=== PATIENT | female | born 1940 | race Two or more races ===

== ENCOUNTER 2021-10-27 11:51 | Inpatient (IN) | payer MEDICARE, BC ==
[~2021-10-27] VITALS: Ht 165.1 cm; Wt 203.2 kg
[2021-10-27 13:07] LABS: Basophils # (auto) 0.1 10 ^3/uL (0-0.2); Basophils % (auto) 0.6 % (0.0-2.0); Eosinophils # (auto) 0.2 10 ^3/uL (0-0.8); Eosinophils % (auto) 1.7 % (0.0-7.0); Hematocrit 44.1 % (36.0-46.0); Hemoglobin 14.7 g/dL (12.2-16.2); Lymphocytes # (auto) 1.7 10 ^3/uL (0.4-5.4); Lymphocytes % (auto) 14.8 % (10.0-50.0); Mean Corpuscular Hemoglobin 28.6 pg (28.0-32.0); Mean Corpuscular Hgb Conc. 33.4 g/dL (32.0-36.0); Mean Corpuscular Volume 85.7 fL (80.0-100.0); Monocytes # (auto) 1.2 10 ^3/uL (0-1.3); Neutrophils # (auto) 8.4 10 ^3/uL (1.6-8.6); Neutrophils % (auto) 72.9 % (37.0-80.0); Nucleated Red Blood Cells % 0.1 %; Red Blood Cells 5.15 10^6/uL (4.0-5.20); Red Cell Distribution Width 14.4 % (11.8-14.3); White Blood Cell 11.5 10^3/uL (4.4-10.8)
[2021-10-27 13:13] LABS: INR 0.99 (0.9-1.15); Partial Thromboplastin Time 29.1 sec (23.6-33.0)
[2021-10-27 13:15] LABS: Albumin 3.7 g/dL (3.4-5.0); BUN/Creatinine Ratio 22.6; Calcium 9.1 mg/dL (8.5-10.1); Magnesium 2.3 mg/dL (1.6-2.6)
[2021-10-27 13:18] LABS: Bilirubin, Total 0.4 mg/dL (0.2-1.0); Total Protein 7.4 g/dL (6.4-8.2)
[2021-10-27] MEDS ORDERED: MORPHINE SULFATE INJ 2 MG/ml SYRG IV PRN (16:15)
[2021-10-27] MEDS ORDERED: NITROGLYCERIN 0.4 MG SL TAB SL PRN (16:15)
[2021-10-27] MEDS ORDERED: ALBUTEROL SULF 2.5 MG/0.5ML(0.5%) NEB SOLN NEB PRN (16:30)
[2021-10-27] MEDS ORDERED: AZITHROMYCIN 500MG/ 250ML 250 ML IV ONE (16:30)
[2021-10-27 19:41] LABS: Urine Bacteria NONE SEEN /hpf (None Seen); Urine Blood Negative /uL (Negative); Urine Specific Gravity 1.006 (1.001-1.035); Urine WBC 20 /hpf (0 - 5)
[2021-10-27 20:37] VITALS: BP 155/89
[2021-10-27] MEDS ORDERED: ASPI-543 PO (21:18)
[2021-10-27] MEDS ORDERED: SIMV-8 PO (21:18)
[2021-10-27 21:42] VITALS: BP 157/69
[2021-10-27 22:00] VITALS: BP 135/56
[2021-10-27] MEDS: SODIUM CHLORIDE 0.9% 1,000 ML IV SCH (23:35)
[2021-10-28 05:00] VITALS: BP 116/60
[2021-10-28 06:01] LABS: Basophils # (auto) 0.1 10 ^3/uL (0-0.2); Basophils % (auto) 1.3 % (0.0-2.0); Eosinophils # (auto) 0.1 10 ^3/uL (0-0.8); Eosinophils % (auto) 0.9 % (0.0-7.0); Hematocrit 40.7 % (36.0-46.0); Hemoglobin 14.2 g/dL (12.2-16.2); Lymphocytes # (auto) 0.9 10 ^3/uL (0.4-5.4); Lymphocytes % (auto) 8.9 % (10.0-50.0); Mean Corpuscular Hemoglobin 29.3 pg (28.0-32.0); Mean Corpuscular Volume 83.8 fL (80.0-100.0); Monocytes # (auto) 0.9 10 ^3/uL (0-1.3); Neutrophils # (auto) 8.1 10 ^3/uL (1.6-8.6); Neutrophils % (auto) 79.9 % (37.0-80.0); Nucleated Red Blood Cells % 0.1 %; Red Blood Cells 4.86 10^6/uL (4.0-5.20); Red Cell Distribution Width 14.3 % (11.8-14.3); White Blood Cell 10.1 10^3/uL (4.4-10.8)
[2021-10-28 06:17] LABS: Albumin 3.4 g/dL (3.4-5.0); Calcium 8.7 mg/dL (8.5-10.1); Potassium 4.2 mmol/L (3.5-5.1)
[2021-10-28 06:21] LABS: BUN/Creatinine Ratio 18.3; Bilirubin, Total 0.6 mg/dL (0.2-1.0); Total Protein 6.8 g/dL (6.4-8.2)
[2021-10-28 08:00] VITALS: BP 140/73
[2021-10-28] MEDS: SODIUM CHLORIDE 0.9% 1,000 ML IV SCH (08:20)
[2021-10-28] MEDS: AZITHROMYCIN 500MG/ 250ML 250 ML IV SCH (10:29)
[2021-10-28] MEDS ORDERED: FUROSEMIDE 20 MG/2 ML VIAL IV ONE ×2 (11:15→18:00)
[2021-10-28 12:00] VITALS: BP 132/69
[2021-10-28] MEDS ORDERED: ANGIOMAX 250 MG VIAL IV ONE (16:31)
[2021-10-28] MEDS ORDERED: HEPARIN SODIUM (PORCINE) 5000 UNITS/ML 1ML VIAL ONE (16:31)
[2021-10-28] MEDS ORDERED: VERAPAMIL 2.5MG/ML INJ 2ML VIAL IV ONE (16:32)
[2021-10-28] MEDS ORDERED: fentaNYL CITRATE 100 MCG/2 ML VL ONE (16:32)
[2021-10-28] MEDS ORDERED: MIDAZOLAM HCL 2MG/2ML 2ml VIAL (1mg/ml) ONE (16:32)
[2021-10-28] MEDS ORDERED: SODIUM CHL 0.9% 0 ML ONE (16:32)
[2021-10-28] MEDS ORDERED: LIDOCAINE 2%HCL (LOCAL ANESTH.) INJ 10ml MDV ONE (16:40)
[2021-10-28 17:55] VITALS: BP 124/55
[2021-10-28 23:40] VITALS: BP 130/63
[2021-10-29 05:26] VITALS: BP 125/62
[2021-10-29 08:50] VITALS: BP 102/56
[2021-10-29] MEDS ORDERED: FUROSEMIDE 20 MG/2 ML VIAL IV SCH (10:00)
[2021-10-29] MEDS: AZITHROMYCIN 500MG/ 250ML 250 ML IV SCH (11:15)
[2021-10-29 13:00] VITALS: BP 153/62
[2021-10-29 16:09] VITALS: BP 153/62
== END 2021-10-29 17:31 | disposition home or self-care (01) | DRG 286 ==
LOC: ER 11:52 → TELE 16:03 → TELE-EAST 20:19
PROVIDERS: ADMIT Registered Nurse; ATTEND Internal Medicine
PROC: 4A023N7 Measurement of Cardiac Sampling and Pressure, Left Heart, Percutaneous Approach (ICD-10-PCS; principal; 2021-10-29)
PROC: B211YZZ Fluoroscopy of Multiple Coronary Arteries using Other Contrast (ICD-10-PCS; 2021-10-29)
PROC: B215YZZ Fluoroscopy of Left Heart using Other Contrast (ICD-10-PCS; 2021-10-29)
DX: I25.110 Atherosclerotic heart disease of native coronary artery with unstable angina pectoris (principal); J18.9 Pneumonia, unspecified organism; I50.31 Acute diastolic (congestive) heart failure; J96.00 Acute respiratory failure, unspecified whether with hypoxia or hypercapnia; Z68.45 Body mass index [BMI] 70 or greater, adult; I11.0 Hypertensive heart disease with heart failure; D72.829 Elevated white blood cell count, unspecified; C50.919 Malignant neoplasm of unspecified site of unspecified female breast; E66.9 Obesity, unspecified; J43.9 Emphysema, unspecified; E11.9 Type 2 diabetes mellitus without complications; Z53.29 Procedure and treatment not carried out because of patient's decision for other reasons; Z20.822 Contact with and (suspected) exposure to COVID-19; F17.210 Nicotine dependence, cigarettes, uncomplicated; K21.9 Gastro-esophageal reflux disease without esophagitis; E78.5 Hyperlipidemia, unspecified; Z85.3 Personal history of malignant neoplasm of breast; Z90.13 Acquired absence of bilateral breasts and nipples; Z90.49 Acquired absence of other specified parts of digestive tract; Z90.710 Acquired absence of both cervix and uterus; Z79.899 Other long term (current) drug therapy; Z88.0 Allergy status to penicillin; Z71.3 Dietary counseling and surveillance
CPT/HCPCS: 36415; 36600; 71045; 80053; 81001; 82805; 83036; 83735; 83880; 84443; 84484; 85025; 85610; 85730; 86850; 86900; 86901; 93005; 93458; 96365; 99152; 99153; G0378; J2001; J2250